=== PATIENT | male | born 1995 | race Caucasian/White ===

== ENCOUNTER 2025-05-04 07:13 | Day surgery (SDC) | payer OTHER ==
[~2025-05-04 07:13] MED LIST: METF-1211 PO; SODIUM CHLORIDE 0.9% 1,000 ML ONE
[2025-05-04] MEDS: SODIUM CHLORIDE 0.9% 1,000 ML IV ONE (08:28)
[2025-05-04 11:16] LABS: GLUCOMETER DEV NAME(LOC) SDS.; GLUCOSE,POINT OF CARE 140 MG/DL (70-110)
[2025-05-04] MEDS ORDERED: PROPOFOL 1% ISO-OSM 1000 MG/100 ML BOTTLE IV ONE (12:00)
[2025-05-04] MEDS ORDERED: LIDOCAINE/PF 2% 5 ML VIAL ONE (12:00)
[2025-05-04] MEDS ORDERED: OXYGEN THERAPY IH SCH (20:00)
== END 2025-05-04 11:45 | disposition home or self-care (01) ==
LOC: SURGERY 07:13
PROVIDERS: ATTEND Specialist
DX: K92.1 Melena (principal); K64.8 Other hemorrhoids; K64.4 Residual hemorrhoidal skin tags; E11.9 Type 2 diabetes mellitus without complications; E66.813 Obesity, class 3; G47.33 Obstructive sleep apnea (adult) (pediatric); Z68.43 Body mass index [BMI] 50.0-59.9, adult; Z79.84 Long term (current) use of oral hypoglycemic drugs
CPT/HCPCS: 45378; 82962; J3490; J2704; J7030